=== PATIENT | female | born 1950 | race Caucasian/White ===

== ENCOUNTER 2017-05-14 05:34 | Day surgery (SDC) | payer OTHER ==
[~2017-05-14] VITALS: Ht 165.1 cm; Wt 88.9 kg
[~2017-05-14 05:34] MED LIST: GLUCOPHAGE1000 MG PO; HYDROCHLOROTHIA25 MG PO; INVOKANA100 MG PO; ONGLYZA5 MG PO; PRANDIN1 MG PO; ZESTRIL20 MG PO; ZETIA10 MG PO
[2017-05-14 06:12] LABS: POINT-OF-CARE METER ID UU14174212
[2017-05-14 06:17] VITALS: BP 124/69
[2017-05-14 10:59] LABS: POINT-OF-CARE METER ID UU14174212
[2017-05-14] MEDS ORDERED: NORCO 5/3251 TABLET PO (13:02)
[2017-05-14 13:12] LABS: POINT-OF-CARE METER ID UU13113675
[2017-05-14 14:00] VITALS: BP 147/70
[2017-05-14 15:00] VITALS: BP 118/64
== END 2017-05-14 15:20 | disposition home or self-care (01) ==
LOC: SDC 05:34 → NUC 11:00 → SDC 15:20
PROVIDERS: Surgery
DX: C50.812 Malignant neoplasm of overlapping sites of left female breast (principal); Z17.0 Estrogen receptor positive status [ER+]; I10 Essential (primary) hypertension; E11.9 Type 2 diabetes mellitus without complications; E78.5 Hyperlipidemia, unspecified; Z79.84 Long term (current) use of oral hypoglycemic drugs
CPT/HCPCS: 78195; 78999; 82948; 88305; 88307; A9541; J0131; J0690; J1100; J1170; J2175; J2250; J2405; J2765; J3010; S0020

== ENCOUNTER 2017-11-02 12:40 | Emergency (ER) | payer OTHER ==
[~2017-11-02 12:40] MED LIST changes: +NORCO 5/3251 TABLET PO
[2017-11-02 12:53] LABS: BASOPHIL (%) 0.4 % (0-1); BASOPHIL COUNT 0.1 K/uL (0-0.1); EOSINOPHIL (%) 0.6 % (0-5); EOSINOPHIL COUNT 0.1 K/uL (0-0.3); HEMATOCRIT 41.8 % (36.0-46.0); IMMATURE GRANULOCYTE (%) 0.6 % (0.0-0.7); LYMPHOCYTE COUNT 4.4 K/uL (1.0-2.8); MCH 31.1 PG (29.0-34.0); MCHC 33.5 G/DL (30.0-36.0); MCV 92.9 FL (83-99); MONOCYTE (%) 5.3 % (3-12); MONOCYTE COUNT 0.8 K/uL (0-0.8); NEUTROPHIL (%) 63.1 % (45-76); NEUTROPHIL COUNT 9.4 K/uL (1.8-6.4); PLATELET COUNT 338 K/uL (156-360); RBC DIS.WIDTH-CV 13.3 % (11.8-14.6); RBC DIS.WIDTH-SD 45.7 % (39-53); WHITE BLOOD COUNT 14.8 K/uL (4.1-10.2)
[2017-11-02 13:04] LABS: AMYLASE 45 IU/L (1-118); CHLORIDE 103 mEq/L (99-109); POTASSIUM 3.2 mEq/L (3.7-5.4); SODIUM 138 mEq/L (136-147)
[2017-11-02 13:06] LABS: GLUCOSE 160 mg/dL (70-99)
[2017-11-02 13:09] LABS: SERUM ETHYL ALCOHOL < 10 mg/dL
[2017-11-02 13:10] LABS: GFR ESTIMATE (CALCULATED) 59 mL/min/
[2017-11-02 13:11] LABS: UREA NITROGEN (BUN) 22 mg/dL (9-23)
[2017-11-02 13:13] LABS: LIPASE 32 U/L (1.0-51.0)
[2017-11-02 14:53] LABS: PTT 26.7 SEC (25-37)
[2017-11-02 15:05] LABS: TROP-I INTERPRETATION NEGATIVE; TROPONIN-I < 0.01 ng/mL (0.0-0.30)
[2017-11-02 15:30] VITALS: BP 132/67
== END 2017-11-02 15:30 | disposition home or self-care (01) ==
LOC: TRA 12:40
PROVIDERS: Emergency Medicine
DX: S20.219A Contusion of unspecified front wall of thorax, initial encounter (principal); E87.6 Hypokalemia; V43.62XA Car passenger injured in collision with other type car in traffic accident, initial encounter; Y92.410 Unspecified street and highway as the place of occurrence of the external cause; K57.32 Diverticulitis of large intestine without perforation or abscess without bleeding
CPT/HCPCS: 70450; 71260; 72125; 72129; 72132; 74177; 80048; 81003; 82150; 83690; 84484; 85025; 85610; 85730; 86850; 86900; 86901; 93005; 99281; 99285; G0480